=== PATIENT | male | born 1990 | race Caucasian/White ===

== ENCOUNTER 2021-07-10 12:28 | Emergency (ER) | payer OTHER ==
[~2021-07-10] VITALS: Ht 162.6 cm; Wt 100.2 kg
[2021-07-10 12:37] VITALS: BP 133/83
[2021-07-10 15:03] VITALS: BP 133/83
--- NOTE | 2021-07-10 15:03 | NUR ---
Patient discharged with v/s stable. Written and verbal after care instructions given and explained. Patient verbalized understanding. Ambulatory with steady gait. All questions addressed prior to discharge. Advised to follow up with PMD.
[2021-07-11 07:08] LABS: HEPATITIS B SURFACE ANTIGEN Negative (Negative)
== END 2021-07-10 15:03 | disposition home or self-care (01) ==
LOC: MED 12:28
DX: S61.233A Puncture wound without foreign body of left middle finger without damage to nail, initial encounter (principal); S60.413A Abrasion of left middle finger, initial encounter; W46.0XXA Contact with hypodermic needle, initial encounter; Y92.89 Other specified places as the place of occurrence of the external cause; Y93.89 Activity, other specified; Y99.8 Other external cause status
CPT/HCPCS: 36415; 86592; 86702; 86803; 87340; 99283